=== PATIENT | male | born 2000 | race Caucasian/White ===

== ENCOUNTER 2022-10-18 08:46 | Emergency (ER) | payer OTHER ==
[~2022-10-18] VITALS: Ht 177.8 cm; Wt 124.7 kg
[2022-10-18 08:54] VITALS: BP 126/80
--- NOTE | 2022-10-18 09:49 | NUR ---
22 Y/O MALE BIB SELF C/O PRODUCTIVE COUGH [id number], STATES FATHER WAS SICK WITH SAME S/S A FEW WEEKS AGO, DENIES ANY SOB, FEVERS, CHILLS NKA PMH: DENIES
[2022-10-18 10:43] VITALS: BP 126/80
--- NOTE | 2022-10-18 10:43 | NUR ---
Patient discharged with v/s stable. Written and verbal after care instructions given and explained. Patient verbalized understanding. Ambulatory with steady gait. All questions addressed prior to discharge. Advised to follow up with PMD.
== END 2022-10-18 10:43 | disposition home or self-care (01) ==
LOC: MED 08:46
DX: R05.9 Cough, unspecified (principal); Z20.822 Contact with and (suspected) exposure to COVID-19
CPT/HCPCS: 71046; 99284